=== PATIENT | female | born 1985 | race Caucasian/White ===

== ENCOUNTER 2021-09-23 11:31 | Emergency (ER) | payer BC ==
[2021-09-23 12:25] LABS: Urine Blood Negative (Negative); Urine Glucose Negative (Negative); Urine Protein 1+ (Negative); Urine Specific Gravity 1.025 (1.005-1.030)
[2021-09-23 12:30] LABS: Absolute Lymphocytes (CBC) 1.2 K/uL (0.7-4.9); Hematocrit 41.7 % (36.0-45.0); Lymphocytes % 26.5 % (15.3-44.8); MPV 8.2 fL (7.6-11.3); RBC Red Blood Cell Count 4.39 M/uL (3.86-4.86)
[2021-09-23 12:46] LABS: Albumin 3.4 g/dL (3.4-5.0); Bilirubin Total 0.3 mg/dL (0.2-1.0); Potassium 4.1 mmol/L (3.5-5.1); Protein, Total 6.1 g/dL (6.4-8.2)
--- NOTE | 2021-09-23 13:21 | RAD REPORT ---
EXAM DESCRIPTION: CT - Abdomen Pelvis W Contrast - 09/23/2021 1:00 pm CLINICAL HISTORY: Abdominal pain, acute, nonlocalized COMPARISON: No comparisons TECHNIQUE: Biphasic, helical CT imaging of the abdomen and pelvis was performed following 100 ml non -ionic IV contrast. No oral contrast administered. All CT scans are performed using dose optimization technique as appropriate and may include automated exposure control or mA/KV adjustment according to patient size. FINDINGS: No suspicious findings in the lung bases. In the subcapsular dome right lobe liver there is an 18 millimeter round low-density mass on arterial phase imaging. Venous phase imaging shows possible nodular enhancement along the periphery. This les ion is not fully assessed but is most likely to be hemangioma. This could be further evaluated with o utpatient sonography. There are no other focal liver lesions seen. Spleen and pancreas show no suspic ious findings. Gallbladder and biliary tree are also without suspicious finding. Symmetric renal function is seen with no hydronephrosis or suspicious renal mass. No pyelonephritis o r acute parenchymal process. No bladder abnormalities. No adrenal abnormalities. Uterus and ovaries s how no suspicious findings. Small ovarian cysts are present but no cyst rupture or hemorrhage identif iable. No gastric wall thickening or mass seen. Hyperdensity in the fundus is believed be ingested food or m edication and not an enhancing vessel. Fluid-filled small bowel loops are present distally. Small bow el pattern is nonspecific. Terminal ileum and ileocecal valve unremarkable. A normal air-filled appen morena is not seen. No right lower and quadrant inflammatory stranding. No indirect evidence for appendi citis. Moderate stool volume is present filling the colon. Sigmoid colon is redundant. No free air, free fluid or inflammatory stranding. No hernia, mass or bulky lymphadenopathy. No suspicious bony findings. IMPRESSION: Contrast enhanced CT abdomen and pelvis showing no acute or emergent finding. The appendix is not clearly defined on this study. No indirect evidence for appendicitis. Approximately 18 mm round low-density mass subcapsular dome of the liver is most likely a hemangioma but is not fully evaluated. Long-term significance is doubtful. Follow-up liver sonography could be p erformed as an outpatient examination to try to better characterize this mass.
--- NOTE | 2021-09-23 13:26 | RAD REPORT ---
EXAM DESCRIPTION: US - Transvaginal Study Probe - 09/23/2021 1:16 pm CLINICAL HISTORY: ABD PAIN COMPARISON: CT study same date TECHNIQUE: Endovaginal sonography was performed. FINDINGS: Uterus measures grossly 9 x 3.5 x 5 cm. No myometrial mass identifiable. Tri laminar endom etrial stripe is seen at 6 mm thickness. Blood or old fluid is seen in the cervical canal. No evidenc e for a cervical mass. No blood or fluid in the cul de sac. Right ovary is normal in size with no dominant solid or cystic ovarian or adnexal finding. Doppler ev aluation shows normal right ovarian blood flow pattern. No endometrioma or right adnexal abnormality. Left ovary is also normal size with no dominant solid or cystic mass. Normal blood flow in the left o vary was more difficult to obtain due to technical factors and body habitus affects. Left ovarian vas cular compromise is not suspected. There is no para ovarian or left adnexal mass. IMPRESSION: Small amount of fluid or old blood is present in the cervical canal without evidence for cervical mass or mass of the myometrium. No focal endometrial mass or polyp seen. No suspicious ovarian or adnexal finding.
--- NOTE | 2021-09-23 13:34 | EDPHYS ---
Physician Documentation [facility] Name: Manda Adams Age: 36 yrs Sex: Female : 1985 Arrival Date: 09/23/2021 Time: 11:32 Bed 2 Private MD: ED Physician Vinnie Jiménez HPI: 09/23 11:51 This 26 yrs old Female presents to ER via EMS with complaints of Abdominal Pain. kdr 11:51 The patient presents with abdominal pain in the lower abdomen. Onset: The kdr symptoms/episode began/occurred suddenly, this morning. The symptoms do not radiate. Associated signs and symptoms: none. The symptoms are described as achy, crampy, vague, waxing/waning. Modifying factors: The symptoms are alleviated by nothing, the symptoms are aggravated by movement, touching the area. Severity of pain: At its worst the pain was severe incapacitating in the emergency department the pain has improved markedly. The patient has experienced similar episodes in the past, Patient has been having this problem for about 2 years. It has been coming and going. She recently has had a work-up including ultrasound and CT. It was concluded that she may have ovarian cyst. In her interpretation, the cyst may not have been extraordinary but rather just normal in size. No further work-up was planned by the service that performed ultrasound. Patient however is not happy with the outcome at this point as she is still having pain without either good management or understanding of the origin. The patient has not recently seen a physician. 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 - Social history:: Smoking status: Patient denies any tobacco usage or history of. ROS: 11:51 Constitutional: Negative for fever, chills, and weight loss, Eyes: Negative for injury, kdr pain, redness, and discharge, Neck: Negative for injury, pain, and swelling, Cardiovascular: Negative for chest pain, palpitations, and edema, Respiratory: Negative for shortness of breath, cough, wheezing, and pleuritic chest pain, Back: Negative for injury and pain, : Negative for injury, bleeding, discharge, and swelling, MS/Extremity: Negative for injury and deformity, Skin: Negative for injury, rash, and discoloration, Neuro: Negative for headache, weakness, numbness, tingling, and seizure activity. Psych: Negative for depression, anxiety, suicide ideation, homicidal ideation, and hallucinations, Allergy/Immunology: Negative for hives, rash, and allergies, Endocrine: Negative for neck swelling, polydipsia, polyuria, polyphagia, and marked weight changes, Hematologic/Lymphatic: Negative for swollen nodes, abnormal bleeding, and unusual bruising. 11:51 Abdomen/GI: Positive for abdominal pain, Negative for constipation, abdominal cramps, abdominal distension, anorexia, dysphagia, hematemesis, black/tarry stool, rectal pain, rectal bleeding. Exam: 11:51 Constitutional: This is a well developed, well nourished patient who is awake, alert, kdr and in no acute distress. Head/Face: Normocephalic, atraumatic. Eyes: Pupils equal round and reactive to light, extra-ocular motions intact. Lids and lashes normal. Conjunctiva and sclera are non-icteric and not injected. Cornea within normal limits. Periorbital areas with no swelling, redness, or edema. Neck: Trachea midline, no thyromegaly or masses palpated, and no cervical lymphadenopathy. Supple, full range of motion without nuchal rigidity, or vertebral point tenderness. No Meningismus. Chest/axilla: Normal chest wall appearance and motion. Nontender with no deformity. No lesions are appreciated. Cardiovascular: Regular rate and rhythm with a normal S1 and S2. No gallops, murmurs, or rubs. Normal PMI, no JVD. No pulse deficits. Respiratory: Lungs have equal breath sounds bilaterally, clear to auscultation and percussion. No rales, rhonchi or wheezes noted. No increased work of breathing, no retractions or nasal flaring. Back: No spinal tenderness. No costovertebral tenderness. Full range of motion. Skin: Warm, dry with normal turgor. Normal color with no rashes, no lesions, and no evidence of cellulitis. MS/ Extremity: Pulses equal, no cyanosis. Neurovascular intact. Full, normal range of motion. Neuro: Awake and alert, GCS 15, oriented to person, place, time, and situation. Cranial nerves II-XII grossly intact. Motor strength 5/5 in all extremities. Sensory grossly intact. Cerebellar exam normal. Normal gait. Psych: Awake, alert, with orientation to person, place and time. Behavior, mood, and affect are within normal limits. 11:51 Abdomen/GI: Inspection: abdomen appears normal, Bowel sounds: active, Palpation: soft, in all quadrants, mild abdominal tenderness, in all quadrants. Vital Signs: 11:32 BP 93 / 64; Pulse 79; Resp 15; Temp 97.1; Pulse Ox 100% on R/A; Weight 74.84 kg; Height jl7 5 ft. 7 in. (170.18 cm); Pain 3/10; 13:15 BP 91 / 66; Pulse 80; Resp 15; Pulse Ox 97% ; jl7 11:32 Body Mass Index 25.84 (74.84 kg, 170.18 cm) jl7 MDM: 11:51 Data reviewed: vital signs, nurses notes, lab test result(s), radiologic studies. kdr Counseling: I had a detailed discussion with the patient and/or guardian regarding: the historical points, exam findings, and any diagnostic results supporting the discharge/admit diagnosis, lab results, radiology results. 13:33 Patient medically screened. kdr 09/23 11:48 Order name: CBC with Diff; Complete Time: 13:14 kdr 09/23 11:48 Order name: CMP; Complete Time: 13:14 kdr 09/23 11:48 Order name: Lipase; Complete Time: 13:14 kdr 09/23 11:48 Order name: CT Abd/Pelvis - IV Contrast Only; Complete Time: 13:31 kdr 09/23 12:25 Order name: Urine Dipstick-Ancillary; Complete Time: 13:14 EDMS 09/23 12:40 Order name: Urine --Ancillary (enter results) eb 09/23 11:48 Order name: IV Saline Lock; Complete Time: 12:26 kdr 09/23 11:48 Order name: Labs collected and sent; Complete Time: 12:26 kdr 09/23 11:48 Order name: US Transvaginal Study (Probe); Complete Time: 13:31 kdr 09/23 12:26 Order name: Urine Dipstick-Ancillary (obtain specimen); Complete Time: 12:09/23 12:26 Order name: Urine Test (obtain specimen); Complete Time: Administered Medications: No medications were administered Disposition Summary: 09/23/21 13:33 Discharge Ordered Location: Home kdr Problem: an acute exacerbation kdr Symptoms: are resolved kdr Condition: Stable kdr Diagnosis - Abdominal pain, Generalized kdr - Pelvic and perineal pain kdr Followup: kdr - With: Private Physician - When: 2 - 3 days - Reason: If symptoms return, Further diagnostic work-up, Recheck today's complaints, Continuance of care, Re-evaluation by your physician Discharge Instructions: - Discharge Summary Sheet kdr - Pelvic Pain, Female kdr - Abdominal Pain, Adult, [id number] kdr Forms: - Medication Reconciliation Form kdr - Thank You Letter kdr - Prescription Opioid Use kdr - Work release form eb Prescriptions: - Ibuprofen 600 mg Oral Tablet - take 1 tablet by ORAL route every 6 hours As needed take with food; 15 tablet; kdr Refills: 0, Product Selection Permitted - Tramadol 50 mg Oral Tablet - take 1 tablet by ORAL route every 8 hours as needed; 12 tablet; Refills: 0, kdr Product Selection Permitted Signatures: Dispatcher [employer] EDMS Vinnie Jiménez MD MD kdr Migdalia Zheng RN RN jl7 Corrections: (The following items were deleted from the chart) 11:41 11:40 PMHx: Seizure; jl7 jl7
--- NOTE | 2021-09-23 13:34 | ER ---
Nurse's Notes [facility] Name: Manda Adams Age: 36 yrs Sex: Female : 1985 Arrival Date: 09/23/2021 Time: 11:32 Bed 2 Private MD: Diagnosis: Abdominal pain, Generalized;Pelvic and perineal pain Presentation: 09/23 11:32 Chief complaint: EMS states: Bilateral lower quadrant abdominal pain x 1.5 hours, hx of jl7 ovarian cyst. 75 mcg Fentanyl IM given in route, pain significant reduced from >10/10 to 3/10. Coronavirus screen: At this time, the client does not indicate any symptoms associated with coronavirus-19. Ebola Screen: No symptoms or risks identified at this time. Initial Sepsis Screen: Does the patient meet any 2 criteria? No. Patient's initial sepsis screen is negative. Does the patient have a suspected source of infection? No. Patient's initial sepsis screen is negative. Risk Assessment: Do you want to hurt yourself or someone else? Patient reports no desire to harm self or others. Onset of symptoms was September 23, 2021 at 10:00. 11:32 Method Of Arrival: EMS: [facility] jl7 11:32 Acuity: ROSA 3 jl7 Triage Assessment: 11:40 General: Appears in no apparent distress. uncomfortable, Behavior is calm, cooperative, jl7 appropriate for age. Pain: Complains of pain in right lower quadrant and left lower quadrant Pain currently is 3 out of 10 on a pain scale. Neuro: Level of Consciousness is awake, alert, obeys commands, Oriented to person, place, time, situation. Cardiovascular: Patient's skin is warm and dry. Respiratory: Airway is patent Respiratory effort is even, unlabored, Respiratory pattern is regular, symmetrical. GI: Reports lower abdominal pain. Derm: Skin is pink, warm \T\ dry. 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 - Social history:: Smoking status: Patient denies any tobacco usage or history of. Screenin:42 Abuse screen: Denies threats or abuse. Denies injuries from another. Nutritional jl7 screening: No deficits noted. Tuberculosis screening: No symptoms or risk factors identified. 12:26 Fall Risk IV access (20 points). Total Aldana Fall Scale indicates No Risk (0-24 pts). jl7 Assessment: 11:35 General: See triage assessment. jl7 12:35 Reassessment: Patient appears in no apparent distress at this time. No changes from jl7 previously documented assessment. Patient and/or family updated on plan of care and expected duration. Pain level reassessed. Patient is alert, oriented x 3, equal unlabored respirations, skin warm/dry/pink. 13:35 Reassessment: Dr. Jiménez at bedside discussing results and POC. jl7 Vital Signs: 11:32 BP 93 / 64; Pulse 79; Resp 15; Temp 97.1; Pulse Ox 100% on R/A; Weight 74.84 kg; Height jl7 5 ft. 7 in. (170.18 cm); Pain 3/10; 13:15 BP 91 / 66; Pulse 80; Resp 15; Pulse Ox 97% ; jl7 11:32 Body Mass Index 25.84 (74.84 kg, 170.18 cm) jl7 ED Course: 11:32 Patient arrived in ED. jl7 11:36 Vinnie Jiménez MD is Attending Physician. kdr 11:40 Triage completed. jl7 11:40 Arm band placed on right wrist. jl7 11:55 Migdalia Zheng RN is Primary Nurse. jl7 12:05 Missed attempt(s): 22 gauge in right antecubital area. Bleeding controlled, band aid jl7 applied, catheter tip intact. 12:10 Missed attempt(s): 22 gauge in left wrist. Bleeding controlled, band aid applied, jl7 catheter tip intact. 12:15 Initial lab(s) drawn, by ar, sent to lab. Urine collected: clean catch specimen, clear. jl7 Inserted saline lock: 22 gauge in left antecubital area, using aseptic technique. Blood collected. 12:26 Patient has correct armband on for positive identification. Bed in low position. Call jl7 light in reach. Side rails up X2. Pulse ox on. NIBP on. Warm blanket given. 13:02 CT Abd/Pelvis - IV Contrast Only In Process Unspecified. EDMS 13:17 US Transvaginal Study (Probe) In Process Unspecified. EDMS 13:55 No provider procedures requiring assistance completed. IV discontinued, intact, jl7 bleeding controlled, No redness/swelling at site. Pressure dressing applied. Administered Medications: No medications were administered Outcome: 13:33 Discharge ordered by . poncho 13:55 Discharged to home ambulatory. jlFunmilayo 13:55 Condition: stable 13:55 Discharge instructions given to patient, Instructed on discharge instructions, follow up and referral plans. medication usage, Demonstrated understanding of instructions, follow-up care, medications, Prescriptions given X 2. 13:56 Patient left the ED. jl7 Signatures: Dispatcher [employer] EDMS Vinnie Jiménez MD MD kdr Leal, Jahala RN RN jl7 Corrections: (The following items were deleted from the chart) 11:41 11:40 PMHx: Seizure; jl7 jl7
[2021-09-23 13:50] LABS: Urine Specific Gravity/Preg 1.025 (1.005-1.030)
[2021-09-23 14:27] VITALS: TEMP 97.1
[2021-09-23 14:32] VITALS: BP 91/66; O2SAT 97
== END 2021-09-23 13:56 | disposition home or self-care (01) ==
LOC: EDBD 11:31 → ER 11:31
DX: R10.84 Generalized abdominal pain (principal); R10.2 Pelvic and perineal pain; G40.909 Epilepsy, unspecified, not intractable, without status epilepticus
CPT/HCPCS: 85025; 36415; 81025; 82565; 81003; 83690; 80053; 74177; 76830; 99284; Q9967